=== PATIENT | female | born 1955 | race Caucasian/White ===

== ENCOUNTER 2017-02-10 09:50 | Outpatient (CLI) | payer OTHER ==
--- NOTE | 2017-02-11 16:43 | Mammography Report ---
DIGITAL SCREENING MAMMOGRAM: 02/10/2017 CLINICAL INDICATION: A 61-year-old with history of late childbearing, for screening. COMPARISON: 02/2016, 01/2015, 12/2013, 12/2012, 11/2011, 11/2010, 11/2009, 11/2008, 11/2007. TECHNIQUE: Routine CC and MLO projections were obtained of the breasts. Bilateral laterally exaggera lucy craniocaudal views. FINDINGS: The breasts again demonstrate heterogeneously dense fibroglandular parenchyma bilaterally. Coarse and punctate, typically benign calcifications are present. There is a shifting pattern of cir cumscribed nodules bilaterally, compatible with waxing and waning cysts. No suspicious masses, cluste red microcalcifications, or regions of architectural distortion are identified. IMPRESSION: BENIGN FINDINGS. RECOMMENDATION: ROUTINE ANNUAL SCREENING UNLESS OTHERWISE CLINICALLY INDICATED. BIRADS CATEGORY 2-BENIGN FINDINGS. STANDARD QUALIFYING STATEMENTS 1. This examination was reviewed with the aid of Computer-Aided Detection (CAD). 2. A negative or benign imaging report should not delay biopsy if clinically suspicious findings are present. Consider surgical consultation if warranted. More than 5% of cancers are not identified by i maging. 3. Dense breasts may obscure an underlying neoplasm. JOB #: [id number] EXT JOB #:[id number]
== END 2017-02-10 09:51 | disposition home or self-care (01) ==
LOC: DI 09:50
PROVIDERS: ATTEND Specialist
DX: Z12.31 Encounter for screening mammogram for malignant neoplasm of breast (principal)
CPT/HCPCS: 77067

== ENCOUNTER 2020-04-27 10:00 | Outpatient (CLI) | payer OTHER ==
--- NOTE | 2020-04-30 16:27 | Mammography Report ---
BILATERAL DIGITAL SCREENING MAMMOGRAM 3D/2D: 04/27/2020 CLINICAL: Routine screening. Comparison is made to exams dated: 03/31/2019 mammogram, 10/28/2018 ultrasound, 03/25/2018 ultrasound, 04/30/2017 mammogram, 02/10/2017 mammogram, and 01/09/2015 mammogram - [facility]. The tissue of both breasts is heterogeneously dense. This may lower the sensitivity of mammography. There are benign calcifications in both breasts. No significant masses, calcifications, or other findings are seen in either breast. There has been no significant interval change. IMPRESSION: BENIGN There is no mammographic evidence of malignancy. A 1 year screening mammogram is recommended. This exam was interpreted at Station ID: [id number]. NOTE: For mammograms, a report in lay terms will be sent to the patient. Approximately 15% of breast malignancies will not be visualized mammographically. In the management of a palpable breast mass, a negative mammogram must not discourage biopsy of a clinically suspicious lesion. Electronically Signed By: Alissa pichardo/julio cesar:04/27/2020 12:06:05 ACR BI-RADS Category 2: Benign Finding(s) 3342F PARENCHYMAL PATTERN: (D) - The breast(s) demonstrate(s) heterogeneously dense fibroglandular bailey nick. BI-RADS CATEGORY: (2) - 2 RECOMMENDATION: (ANNUAL) - Recommend routine annual screening mammography. [id number] 1 year screening LATERALITY: (B)
== END 2020-04-27 10:01 | disposition home or self-care (01) ==
LOC: DI 10:00
DX: Z12.31 Encounter for screening mammogram for malignant neoplasm of breast (principal)
CPT/HCPCS: 77063; 77067

== ENCOUNTER 2020-10-15 09:49 | Outpatient (CLI) | payer OTHER ==
[2020-10-15 10:26] VITALS: BP 136/77
--- NOTE | 2020-10-15 10:26 | SLEEP CARE CONSULTATION ---
Information from patient questionnaire entered by Claudia Ortiz. I have reviewed and concur with the information entered by Claudia Ortiz. This document represents the service I personally performed and the decisions made by me, Juanito Landaverde MD, [facility]. History of Present Illness Service Date and Time: 10/15/2020 0949 Reason for Visit: New patient Chief Complaint: reports: Insomnia, Snoring, Frequent awakenings at night Date of Onset: 10 years Usual bedtime: 9 pm Time it takes to fall asleep: 30 minutes Snores at night: Yes Observed to quit breathing while asleep: No Sleeps alone due to snoring: No Number of times waking at night: 2-3 Reasons for waking at night: reports: Choking, Snoring, Pain, Bathroom, Other (noise) Toss, Turn, or Twitch while sleeping: No Recalls having dreams: Yes Usually gets out of bed at: 6:30-7:30 am Feels refreshed in the morning: Yes Morning headache: No Sleepy or fatigued during the day: No Ever fallen asleep while driving: No Takes day naps: No Dreams during day naps: No Prior sleep studies: No Additional HPI information: I have the pleasure of seeing Ms. Otto along with her today regarding the possibility of her having obstructive sleep apnea. As you know, she is a 64 year old lady who complains of frequent awakenings, insomnia, and loud snore. The patient tells me that she normally goes to bed around 9 pm, and it takes her approximately 30 minutes to fall asleep. She takes zolpidem 5 mg. She has been told that she snores loudly and irregularly at night. She has never been observed to stop breathing in her sleep. Her sleeps in the same bed but his hard of hearing. She can recall waking up on the average of 2 - 3 times during the night. Most of the time she wakes up because of having to use the bathroom and pain. She has awakened occasionally because of her own snoring, choking, and having to gasp for air. There is a lot of tossing and turning in her sleep. No somniloquy (sleep talking) or somnambulism (sleep walking). Generally she can recall having dreams. In the morning she usually gets up out of the bed around 6:30 7:30 a.m. feeling refreshed and rested. She usually does not have a morning headache. During the day she does not feel sleepy or fatigued. Her score on [place] Sleepiness Scale is 2 out of 24. She never has fallen asleep while driving nor has had any accident due to sleepiness. She usually does not take naps during the day. She reports symptoms of restless leg syndrome. She denies having impaired concentration during the day. - Parasomnia Symptoms Ever been unable to move upon waking from sleep: No Walks in sleep: No Talks in sleep: No Ever acted out dreams in sleep: No Ever felt weak in the knees when startled or emotional: No Bothered by creepy, crawly, restless sensations in legs: Yes (RLS) Problems with memory or concentration: No Subjective Initial [place] Sleepiness Scale score: 2 (in 2020) Social History The patient's occupation is a Retired. Patient is and lives in [place]. Have you smoked in the past 12 months: No Alcohol use: Yes Alcohol amount and frequency: 1 drink at dinner Caffeine use: No Family History Family history of sleep disordered breathing: No Allergies and Home Medications Drug allergies reviewed: Yes Home medication list reviewed: Yes Review of Systems Weight gain over past 5 years: 5 Weight loss over past 5 years: 5 Cardiovascular: reports: palpitations Respiratory: denies: shortness of breath, wheeze, sputum production, chronic cough, other Gastrointestinal: denies: heartburn, difficulty swallowing, nausea, vomitting, diarrhea, abdominal pain, other Urinary: denies: incontinence, frequency, urgency, impotence, other Neurological: reports: headaches Psychiatric: denies: Attention Deficit Hyperactivity, anxiety, depression, mood disorder, claustrophobia, other Ear/Nose/Throat: reports: tonsillectomy, wisdom teeth removed, other (post nasal drip from allergies) Endocrine: denies: thyroid disease, history of goiter, sluggishness, too hot or cold, excessive thirst, increased appetite, increased urination, unexplained weakness, other Musculoskeletal: reports: joint pain, back pain Immunologic: reports: sneezing Physical Exam Vital signs obtained and entered by: Dr. Landaverde Blood Pressure: 136/77 Cuff size: regular Heart Rate: 70 O2 Saturation: 99 Height: 5 ft 6 in Weight: 133 lb Body Mass Index: 21.4 BMI Classification: Healthy weight Neck circumference: 12.5 Mood/affect: normal HEENT: No craniofacial malformation Nostrils: patent to airflow Mouth and throat: narrow oropharynx Soft palate: long Hard palate: normal Uvula: normal Uvula visualization: 50% Mallampati Class II Tongue: normal in size Tonsils: absent bilaterally Impression and Plan IMPRESSION: 1. Insomnia, due to excessive time spent in bed after she retired 10 years ago. Presently, she spends 10 hours in bed each night from 9 pm to 7 am. This causes her to have to wake up and read for 1 2 hours during the night. She was advised to reduce the time spent in bed to no more than 8 hours a night and wake up the same time every day. Because she snores and wakes up gasping for air, I will order a home sleep apnea test (HSAT). I informed the patient of what the test involves and after some discussion, she agreed to proceed. Plan: 1. Maintain a regular wake up time and spend no more than 8 hours in bed at night. Avoid naps. 2. Schedule a home sleep apnea test (HSAT). 3. Return for follow up after the test. Visit Type: In Office Other Participants: Spouse/Significant Other Time Spent with Patient (minutes): 15 Provider Statement: I spent 100% of the Face to Face Visit with the patient with greater than 50% spent counseling the patient and coordination of care.
== END 2020-10-15 09:50 | disposition home or self-care (01) ==
LOC: SC 09:49
PROVIDERS: ATTEND Internal Medicine Pulmonary Disease
DX: G47.00 Insomnia, unspecified (principal)
CPT/HCPCS: 99202; 99212

== ENCOUNTER 2020-10-17 09:33 | Outpatient (CLI) | payer OTHER | END 2020-10-17 09:34 | disposition home or self-care (01) | LOC: SC 09:33 | PROVIDERS: ATTEND Internal Medicine Pulmonary Disease | DX: G47.33 Obstructive sleep apnea (adult) (pediatric) (principal); R09.02 Hypoxemia | CPT/HCPCS: 95806 ==

== ENCOUNTER 2020-10-22 09:11 | Outpatient (CLI) | payer OTHER ==
--- NOTE | 2020-12-06 12:22 | SLEEP CARE CONSULTATION ---
Information from patient questionnaire entered by Cinda Freeman. I have reviewed and concur with the information entered by Cinda Freeman. This document represents the service I personally performed and the decisions made by me, Juanito Landaverde MD, [facility]. History of Present Illness Service Date and Time: 10/22/2020 0911 Initial [place] Sleepiness Scale score: 2 (in 2020) Current [place] Sleepiness Scale score: 1 Additional HPI information: HPI: Ms. Otto returned for follow up of the home sleep apnea test (HSAT) she had on 10/17/20. The test showed mild obstructive sleep apnea-hypopnea with AHI of 13.5 and sanjuanita oxygen saturation of 82%. The respiratory events occurred almost exclusively during supine sleep. The patient was informed of these findings. I explained to her the pathophysiology behind obstructive sleep apnea. We then spent quite a bit of time discussing different treatment options. For mild obstructive sleep apnea, surgery and oral appliance are alternatives to nasal CPAP therapy but in moderate or severe cases, nasal CPAP is the most effective and reliable treatment. After some discussion, she opted to go with the nasal CPAP therapy. I explained to her how CPAP machine works and what to expect when using the machine. She is encouraged to use CPAP every night especially in the first 2 to 3 nights in order to get used to it. She should call me or her CPAP supplier to discuss any mechanical problem that may occur. If she snores while wearing the CPAP or feels like she needs more air from the machine, she should notify me and I will increase the pressure. Sleep Study - Results Type of Sleep Study: Home sleep study Prior sleep studies: No Allergies and Home Medications Drug allergies reviewed: Yes Home medication list reviewed: Yes Review of Systems Review of systems same as previous: Yes Physical Exam Height: 5 ft 6 in Weight: 133 lb Body Mass Index: 21.4 BMI Classification: Healthy weight Impression and Plan IMPRESSION: 1. Obstructive Sleep Apnea-Hypopnea Syndrome, moderate, associated with mild hypoxemia. Possibly, this is the cause of the patients symptoms of frequent awakenings, unrefreshed sleep, and fatigue. As mentioned above, the patient will be started on autoCPAP set between 4 and 12 cmH2O. Depending on her response and compliance she may be brought back for an overnight CPAP titration study. PLAN: 1. Return in two weeks when she is on Medicare and CPAP will be prescribed at that time. 2. Avoid sleeping supine. Visit Type: In Office Time Spent with Patient (minutes): 15 Provider Statement: I spent 100% of the Face to Face Visit with the patient with greater than 50% spent counseling the patient and coordination of care.
== END 2020-10-22 09:12 | disposition home or self-care (01) ==
LOC: SC 09:11
PROVIDERS: ATTEND Internal Medicine Pulmonary Disease
DX: G47.33 Obstructive sleep apnea (adult) (pediatric) (principal)
CPT/HCPCS: 99212

== ENCOUNTER 2020-11-19 10:11 | Outpatient (CLI) | payer MEDICARE, OTHER ==
--- NOTE | 2020-11-19 10:39 | SLEEP CARE CONSULTATION ---
Information from patient questionnaire entered by Claudia Ortiz. I have reviewed and concur with the information entered by Claudia Ortiz. This document represents the service I personally performed and the decisions made by me, Juanito Landaverde MD, [facility]. History of Present Illness Service Date and Time: 11/19/2020 1011 Previous diagnosis: Mild, Obstructive Sleep Apnea-Hypopnea Syndrome AHI: 13.5 (in 2020) Reason for follow up: other (start CPAP on Medicare) Prior sleep studies: Yes Year and Where: 2020 - [facility] Type of Sleep Study: Home sleep study HPI additional information: HPI: Ms. Otto returns today for a CPAP prescription. We went over the results of the home sleep apnea test (HSAT) 2 weeks ago. The just got on Medicare this month and would like to try CPAP. Subjective Initial [place] Sleepiness Scale score: 2 (in 2020) Current [place] Sleepiness Scale score: 1 (on 11/19/20) Allergies and Home Medications Drug allergies reviewed: Yes Home medication list reviewed: Yes Review of Systems Review of systems same as previous: Yes Physical Exam Height: 5 ft 6 in Weight: 133 lb Body Mass Index: 21.4 BMI Classification: Healthy weight Impression and Plan IMPRESSION: 1. Obstructive Sleep Apnea-Hypopnea Syndrome, mild and positional. A prescription was made for autoCPAP set between 4 and 12 cmH2O. The patient would like to hold on to the prescription and will decide which durable medical supplier she will use. We also talked a little bit about her insomnia. PLAN: 1. Prescription made for an autoCPAP, heated humidifier, and related supplies. . 2. Avoid sleeping supine if not using CPAP. Return for follow up after one month of using the CPAP. Follow up with Sleep Care in: as needed Visit Type: In Office Time Spent with Patient (minutes): 15 Provider Statement: I spent 100% of the Face to Face Visit with the patient with greater than 50% spent counseling the patient and coordination of care.
== END 2020-11-19 10:12 | disposition home or self-care (01) ==
LOC: SC 10:11
PROVIDERS: ATTEND Internal Medicine Pulmonary Disease
DX: G47.33 Obstructive sleep apnea (adult) (pediatric) (principal)
CPT/HCPCS: 99212; G0463

== ENCOUNTER 2021-04-30 10:16 | Outpatient (CLI) | payer MEDICARE, OTHER ==
--- NOTE | 2021-05-15 08:31 | Mammography Report ---
BILATERAL DIGITAL SCREENING MAMMOGRAM 3D/2D: 04/30/2021 CLINICAL: Routine screening. Comparison is made to exams dated: 04/27/2020 mammogram, 03/31/2019 ultrasound, 03/31/2019 ultrasound, 03/31/2019 mammogram, 10/28/2018 ultrasound, and 03/25/2018 ultrasound - [facility]. The tissue of both breasts is heterogeneously dense. This may lower the sensitivity of mammography. There are benign calcifications in both breasts. No significant masses, calcifications, or other findings are seen in either breast. There has been no significant interval change. IMPRESSION: BENIGN There is no mammographic evidence of malignancy. A 1 year screening mammogram is recommended. This exam was interpreted at Station ID: [id number]. NOTE: For mammograms, a report in lay terms will be sent to the patient. Approximately 15% of breast malignancies will not be visualized mammographically. In the management of a palpable breast mass, a negative mammogram must not discourage biopsy of a clinically suspicious lesion. Electronically Signed By: Pedro Luis Sanches M.D. ddedy/julio cesar:05/14/2021 12:59:01 ACR BI-RADS Category 2: Benign Finding(s) 3342F PARENCHYMAL PATTERN: (D) - The breast(s) demonstrate(s) heterogeneously dense fibroglandular bailey nick. BI-RADS CATEGORY: (2) - 2 RECOMMENDATION: (ANNUAL) - Recommend routine annual screening mammography. [id number] 1 year screening LATERALITY: (B)
== END 2021-04-30 10:17 | disposition home or self-care (01) ==
LOC: DI.N 10:16
DX: Z12.31 Encounter for screening mammogram for malignant neoplasm of breast (principal)

== ENCOUNTER 2021-11-05 08:00 | Outpatient (CLI) | payer MEDICARE, OTHER ==
[2021-11-05 16:44] LABS: BASOPHILS % (AUTO) 0.9 %; EOSINOPHILS # (AUTO) 0.1 10^3/uL (0.0-0.7); EOSINOPHILS % (AUTO) 2.8 %; HCT - HEMATOCRIT 47.8 % (37.0-47.0); HGB - HEMOGLOBIN 16.2 g/dL (12.0-16.0); LYMPHOCYTES # (AUTO) 1.4 10^3/uL (1.5-3.5); LYMPHOCYTES % (AUTO) 32.5 %; MEAN CORPUSCULAR HEMOGLOBIN 32.6 pg (27.0-31.0); MEAN CORPUSCULAR HGB CONC 33.9 g/dL (32.0-36.0); MEAN CORPUSCULAR VOLUME 96.2 fL (81.0-99.0); MEAN PLATELET VOLUME 11.2 fL (7.9-10.8); MONOCYTES # (AUTO) 0.4 10^3/uL (0.0-1.0); MONOCYTES % (AUTO) 10.2 %; NEUTROPHILS # (AUTO) 2.3 10^3/uL (1.5-6.6); NEUTROPHILS % (AUTO) 53.4 %; PLT - PLATELET COUNT 207 10^3/uL (130-450); RED BLOOD COUNT 4.97 10^6/uL (4.20-5.40); RED CELL DISTRIBUTION WIDTH 12.5 % (12.0-15.0); WHITE BLOOD COUNT 4.3 x10^3/uL (4.8-10.8)
[2021-11-05 17:03] LABS: ALBUMIN 4.4 g/dL (3.2-5.5); ALBUMIN/GLOBULIN RATIO 1.5 (1.0-2.2); ALKALINE PHOSPHATASE 65 IU/L (42-121); ALT ALANINE AMINOTRANSFERASE 20 IU/L (10-60); AST ASPARTATE AMINOTRANSFERASE 22 IU/L (10-42); BILIRUBIN,TOTAL 1.2 mg/dL (0.2-1.0); BUN - BLOOD UREA NITROGEN 17 mg/dL (6-20); CALCIUM 9.5 mg/dL (8.5-10.3); CARBON DIOXIDE - CO2 27 mmol/L (21-32); CHLORIDE 100 mmol/L (101-111); CHOL/HDL RATIO 2.8 (<4.4); CHOLESTEROL 228 mg/dL; CREATININE 0.7 mg/dL (0.4-1.0); GFR - MDRD 84 (>89); GLUCOSE 84 mg/dL (70-100); HDL CHOLESTEROL 82 mg/dL; LDL CHOLESTEROL,CALCULATED 134 mg/dL; LDL/HDL RATIO 1.6 (<4.4); POTASSIUM 3.8 mmol/L (3.5-5.0); SODIUM 137 mmol/L (135-145); TOTAL PROTEIN 7.4 g/dL (6.7-8.2); TRIGLYCERIDES 59 mg/dL; VLDL CHOLESTEROL 12 mg/dL
[2021-11-06 07:10] LABS: HCV AB <0.1 s/co ratio (0.0-0.9)
== END 2021-11-05 23:59 | disposition home or self-care (01) ==
LOC: LAB.R 08:00
PROVIDERS: ATTEND Internal Medicine
DX: Z00.00 Encounter for general adult medical examination without abnormal findings (principal); M54.50 Low back pain, unspecified; G43.909 Migraine, unspecified, not intractable, without status migrainosus; M85.80 Other specified disorders of bone density and structure, unspecified site; Z13.6 Encounter for screening for cardiovascular disorders; Z79.899 Other long term (current) drug therapy
CPT/HCPCS: 80053; 80061; 83721; 84443; 85025; 86803; 87522

== ENCOUNTER 2021-11-21 10:49 | Outpatient (CLI) | payer MEDICARE, OTHER ==
--- NOTE | 2021-11-21 17:11 | DEXA Report ---
PROCEDURE: Dexa Spine and/or Hip INDICATIONS: OSTEOPENIA TECHNIQUE: Dual energy x-ray absorptiometry (DXA) was performed on a [employer] System. Regions measur ed are the AP Spine, femoral neck, and if needed forearm. COMPARISON: 01/22/2016 FINDINGS: Lumbar Spine: Bone Mineral Density 0.998 g/cm/cm,T score -1.5, statistically decreased from the prior study, by 4.2% Left Hip: Bone Mineral Density 0.966 g/cm/cm,T score -0.3, not significantly changed from the previous study. Left Femoral Neck: Bone Mineral Density 0.916 g/cm/cm, T score -0.9. (T score greater or equal to -1.0: NORMAL) (T score from -1.1 to -2.4: OSTEOPENIA) (T score less than or equal to -2.5 to: OSTEOPOROSIS) Impression: Osteopenia, with statistically significant interval decrease in bone mineral density of the lumbar sp ine compared to the previous study. Patients with diagnosis of osteoporosis or osteopenia should have regular bone mineral density assess ment. For those eligible for Medicare, routine testing is allowed once every 2 years. Testing frequ ency can be increased for patients who have rapidly progressing disease or for those who are receivin g medical therapy to restore bone mass. Reviewed by: Jose Whitman MD on 11/21/2021 5:10 PM PDT Approved by: Jose Whitman MD on 11/21/2021 5:10 PM PDT Station ID: [id number]
== END 2021-11-21 10:50 | disposition home or self-care (01) ==
LOC: DI 10:49
PROVIDERS: ATTEND Internal Medicine
DX: M85.88 Other specified disorders of bone density and structure, other site (principal)

== ENCOUNTER 2022-04-30 10:15 | Outpatient (CLI) | payer MEDICARE, OTHER ==
--- NOTE | 2022-05-01 12:52 | Mammography Report ---
BILATERAL DIGITAL SCREENING MAMMOGRAM 3D/2D WITH EXAGGERATED CC: 04/30/2022 CLINICAL: Routine screening. Comparison is made to exams dated: 04/30/2021 mammogram, 04/27/2020 mammogram, 03/31/2019 ultrasound, 03/31/2019 ultrasound, and 03/31/2019 mammogram - [facility]. Both breasts are heterogeneously dense, which may obscure small masses (category c / 51-75% glandular tissue). There are benign calcifications in both breasts. No significant masses, calcifications, or other findings are seen in either breast. There has been no significant interval change. IMPRESSION: BENIGN There is no mammographic evidence of malignancy. A 1 year screening mammogram is recommended. Based on the Tyrer Cuzick model (a risk assessment model) the patients lifetime risk is 10.8% and he r 10 year risk is 5.5%. According to the ACR, ACS, and NCCN guidelines, an annual breast MRI exam sophia ng with mammogram is recommended if the patients lifetime risk is 20% or greater. This exam was interpreted at Station ID: [id number]. NOTE: For mammograms, a report in lay terms will be sent to the patient. Approximately 15% of breast malignancies will not be visualized mammographically. In the management of a palpable breast mass, a negative mammogram must not discourage biopsy of a clinically suspicious lesion. Electronically Signed By: Cody Larry M.D., jr/julio cesar:04/30/2022 14:01:24 ACR BI-RADS Category 2: Benign Finding(s) 3342F PARENCHYMAL PATTERN: (D) - The breast(s) demonstrate(s) heterogeneously dense fibroglandular rufinay sandoval. BI-RADS CATEGORY: (2) - 2 RECOMMENDATION: (ANNUAL) - Recommend routine annual screening mammography. [id number] 1 year screening LATERALITY: (B)
== END 2022-04-30 10:16 | disposition home or self-care (01) ==
LOC: DI 10:15
PROVIDERS: ATTEND Internal Medicine
DX: Z12.31 Encounter for screening mammogram for malignant neoplasm of breast (principal)

== ENCOUNTER 2022-08-11 11:43 | Outpatient (CLI) | payer MEDICARE, OTHER ==
--- NOTE | 2022-08-11 19:58 | XRAY Report ---
PROCEDURE: Lumbar Spine 2 View INDICATIONS: LOW BACK PAIN TECHNIQUE: 2 views of the lumbar spine were acquired. COMPARISON: None. FINDINGS: Bones: 5 [id number] vertebrae are present. Tiny vertebral body osteophytes. There is normal bon y alignment. No vertebral body compression fractures. No suspicious bony lesions. Soft tissues: Overlying bowel gas pattern is normal. No suspicious soft tissue calcifications. IMPRESSION: No compression fracture. Reviewed by: Sagar Davalos MD on 08/11/2022 7:56 PM [facility] Approved by: Sagar Davalos MD on 08/11/2022 7:56 PM [facility] Station ID: [id number]
== END 2022-08-11 11:44 | disposition home or self-care (01) ==
LOC: DI 11:43
PROVIDERS: ATTEND Internal Medicine
DX: M54.50 Low back pain, unspecified (principal)

== ENCOUNTER 2022-09-08 14:09 | Outpatient (CLI) | payer MEDICARE, OTHER ==
--- NOTE | 2022-09-08 16:19 | MRI Report ---
PROCEDURE: LUMBAR SPINE WO INDICATIONS: LOW BACK PAIN TECHNIQUE: Noncontrast sagittal T1 spin echo and T2 fast echo, sagittal STIR, axial T1 and T2 fast spin echo thr ough the lumbar spine. In cases with scoliosis, additional coronal T2 fast spin echo may be performe d. COMPARISON: Plain films dated 08/11/2022 FINDINGS: Image quality: Excellent. Alignment and Curvature: 5 lumbar type vertebral bodies are present by plain film. 3 mm of anterolist hesis of L3 on L4. Bone Marrow: Marrow is of normal overall signal. No acute vertebral body compression fractures. Mi ld reactive signal within the end plates adjacent to the lumbar and lower thoracic spine. Spinal Cord: Conus medullaris terminates at the mid L1 level. Visualized cord demonstrates normal s ignal and size. Paraspinous Soft Tissues: No paravertebral masses. T12-L1: Mild disc desiccation. No significant canal, nor foraminal stenosis. L1-L2: Mild disc desiccation. No significant canal, nor foraminal stenosis. L2-L3: Mild disc desiccation. No significant canal, nor foraminal stenosis. L3-L4: Mild disc height loss and desiccation. Mild diffuse disc bulge. Mild facet and ligament flav um hypertrophy. Mild canal stenosis. Mild bilateral foraminal stenosis. L4-L5: Mild disc desiccation and diffuse disc bulge. Mild facet and ligament flavum hypertrophy. Mi ld canal stenosis. Mild bilateral foraminal stenosis. L5-S1: Normal in appearance. IMPRESSION: 1. Multilevel degenerative disc and facet disease, in addition to epidural lipomatosis and ligamentum flavum hypertrophy. 2. Mild multilevel canal and foraminal stenoses. No neural impingement. Reviewed by: Elieser Jackson MD on 09/08/2022 4:18 PM PST Approved by: Elieser Jackson MD on 09/08/2022 4:18 PM PST Station ID: [id number]
== END 2022-09-08 14:10 | disposition home or self-care (01) ==
LOC: DI 14:09
PROVIDERS: ATTEND Internal Medicine
DX: M54.50 Low back pain, unspecified (principal); M51.36 Other intervertebral disc degeneration, lumbar region; M47.816 Spondylosis without myelopathy or radiculopathy, lumbar region; E88.2 Lipomatosis, not elsewhere classified; M89.38 Hypertrophy of bone, other site; M48.061 Spinal stenosis, lumbar region without neurogenic claudication

== ENCOUNTER 2023-06-01 11:16 | Outpatient (CLI) | payer MEDICARE, OTHER ==
--- NOTE | 2023-06-02 13:07 | Mammography Report ---
BILATERAL DIGITAL SCREENING MAMMOGRAM 3D/2D: 06/01/2023 CLINICAL: Routine screening. Comparison is made to exams dated: 04/30/2022 mammogram, 04/30/2021 mammogram, 04/27/2020 mammogram, and 03/31/2019 mammogram - [facility]. Both breasts are heterogeneously dense, which may obscure small masses (category c / 51-75% glandular tissue). There are benign calcifications in both breasts. No significant masses, calcifications, or other findings are seen in either breast. There has been no significant interval change. IMPRESSION: BENIGN There is no mammographic evidence of malignancy. A 1 year screening mammogram is recommended. Based on the Tyrer Cuzick model (a risk assessment model) the patients lifetime risk is 10.3% and he r 10 year risk is 5.4%. According to the ACR, ACS, and NCCN guidelines, an annual breast MRI exam sohpia ng with mammogram is recommended if the patients lifetime risk is 20% or greater. This exam was interpreted at Station ID: [id number]. NOTE: For mammograms, a report in lay terms will be sent to the patient. Approximately 15% of breast malignancies will not be visualized mammographically. In the management of a palpable breast mass, a negative mammogram must not discourage biopsy of a clinically suspicious lesion. Electronically Signed By: Phi bush/julio cesar:06/01/2023 15:21:58 letter sent: No_Letter ACR BI-RADS Category 2: Benign Finding(s) 3342F PARENCHYMAL PATTERN: (D) - The breast(s) demonstrate(s) heterogeneously dense fibroglandular bailey nick. BI-RADS CATEGORY: (2) - 2 Mammogram [id number] 1 year screening LATERALITY: (B)
== END 2023-06-01 11:17 | disposition home or self-care (01) ==
LOC: DI 11:16
DX: Z12.31 Encounter for screening mammogram for malignant neoplasm of breast (principal); R92.333 Mammographic heterogeneous density, bilateral breasts

== ENCOUNTER 2023-11-24 09:24 | Outpatient (CLI) | payer MEDICARE, OTHER ==
[2023-11-24 09:35] LABS: BASOPHILS # (AUTO) 0.1 10^3/uL (0.0-0.1); BASOPHILS % (AUTO) 1.5 %; EOSINOPHILS # (AUTO) 0.2 10^3/uL (0.0-0.7); HCT - HEMATOCRIT 45.8 % (37.0-47.0); HGB - HEMOGLOBIN 14.6 g/dL (12.0-16.0); LYMPHOCYTES # (AUTO) 1.4 10^3/uL (1.5-3.5); LYMPHOCYTES % (AUTO) 33.8 %; MEAN CORPUSCULAR HGB CONC 31.9 g/dL (32.0-36.0); MEAN CORPUSCULAR VOLUME 97.2 fL (81.0-99.0); MEAN PLATELET VOLUME 9.9 fL (7.9-10.8); MONOCYTES # (AUTO) 0.4 10^3/uL (0.0-1.0); NEUTROPHILS % (AUTO) 50.7 %; PLT - PLATELET COUNT 159 10^3/uL (130-450); RED BLOOD COUNT 4.71 10^6/uL (4.20-5.40); RED CELL DISTRIBUTION WIDTH 12.6 % (12.0-15.0)
[2023-11-24 09:55] LABS: ALBUMIN 4.4 g/dL (3.2-5.5); ALBUMIN/GLOBULIN RATIO 1.6 (1.0-2.2); ALKALINE PHOSPHATASE 71 IU/L (42-121); ALT ALANINE AMINOTRANSFERASE 22 IU/L (10-60); AST ASPARTATE AMINOTRANSFERASE 24 IU/L (10-42); BILIRUBIN,TOTAL 0.9 mg/dL (0.2-1.0); BUN - BLOOD UREA NITROGEN 15 mg/dL (6-20); CALCIUM 9.7 mg/dL (8.5-10.3); CARBON DIOXIDE - CO2 30 mmol/L (21-32); CHLORIDE 101 mmol/L (101-111); CHOL/HDL RATIO 2.4 (<4.4); CHOLESTEROL 198 mg/dL; CREATININE 0.8 mg/dL (0.6-1.3); GFR - MDRD 72 (>89); GLUCOSE 88 mg/dL (74-104); HDL CHOLESTEROL 83 mg/dL; LDL CHOLESTEROL,CALCULATED 104 mg/dL; LDL/HDL RATIO 1.3 (<4.4); POTASSIUM 3.8 mmol/L (3.5-4.5); SODIUM 137 mmol/L (135-145); TOTAL PROTEIN 7.1 g/dL (6.4-8.9); TRIGLYCERIDES 56 mg/dL (48-352); VLDL CHOLESTEROL 11 mg/dL
[2023-11-24 10:06] LABS: THYROID STIMULATING HORMONE 2.04 uIU/mL (0.34-5.60)
== END 2023-11-24 09:25 | disposition home or self-care (01) ==
LOC: LAB 09:24
PROVIDERS: ATTEND Internal Medicine
DX: Z00.00 Encounter for general adult medical examination without abnormal findings (principal); D75.1 Secondary polycythemia; M54.50 Low back pain, unspecified; G43.909 Migraine, unspecified, not intractable, without status migrainosus; M85.80 Other specified disorders of bone density and structure, unspecified site; Z79.899 Other long term (current) drug therapy
CPT/HCPCS: 36415; 80053; 80061; 82306; 83721; 84443; 85025

== ENCOUNTER 2023-12-10 13:48 | Outpatient (CLI) | payer MEDICARE, OTHER ==
--- NOTE | 2023-12-10 17:05 | DEXA Report ---
PROCEDURE: Dexa Spine and/or Hip INDICATIONS: OSTEOPENIA TECHNIQUE: Dual energy x-ray absorptiometry (DXA) was performed on a [employer] System. Regions measur ed are the AP Spine, femoral neck, and if needed forearm. COMPARISON: DEXA 11/21/2021, 01/22/2016. FINDINGS: Lumbar Spine: Bone Mineral Density: 1.029 g/cm/cm, T score: -1.3. Since the most recent prior study, there has bee n a statistically significant increase in bone mineral density by 3.1 percent. Left Femoral Neck: Bone Mineral Density: 0.890 g/cm/cm, T score: -1.1. Left Hip: Bone Mineral Density: 0.956 g/cm/cm, T score: -0.4. There has been no statistically significant nowak e in bone mineral density since the prior study. (T score greater or equal to -1.0: NORMAL) (T score from -1.1 to -2.4: OSTEOPENIA) (T score less than or equal to -2.5 to: OSTEOPOROSIS) Impression: By WHO criteria, this patient has low bone density (osteopenia). Interval statistical increase in bone mineral density of the lumbar spine. No statistical interval change in bone mineral density of the hip. Patients with diagnosis of osteoporosis or osteopenia should have regular bone mineral density assess ment. For those eligible for Medicare, routine testing is allowed once every 2 years. Testing frequ ency can be increased for patients who have rapidly progressing disease or for those who are receivin g medical therapy to restore bone mass. Reviewed by: Sagar Davalos MD on 12/10/2023 5:03 PM PDT Approved by: Sagar Davalos MD on 12/10/2023 5:03 PM PDT Station ID: [id number]
== END 2023-12-10 13:49 | disposition home or self-care (01) ==
LOC: DI 13:48
PROVIDERS: ATTEND Internal Medicine
DX: M85.89 Other specified disorders of bone density and structure, multiple sites (principal)